=== PATIENT | male | born 1970 | race Caucasian/White ===

== ENCOUNTER 2016-06-12 19:07 | Emergency (ER) | payer BC, OTHER ==
[~2016-06-12] VITALS: Ht 172.7 cm; Wt 90.7 kg
[~2016-06-12 19:07] MED LIST: CHLO25CA PO; OMEP20CA3 PO; ZOFR20TA PO
[2016-06-12 19:08] VITALS: BP 148/105
[2016-06-12] MEDS ORDERED: LISI-538 PO (19:29)
[2016-06-12] MEDS ORDERED: HYDR25T PO (19:29)
[2016-06-12] MEDS ORDERED: BUSP10TA PO (19:29)
[2016-06-12] MEDS ORDERED: NS 1,000 ML IV ONE (19:45)
[2016-06-12] MEDS ORDERED: LORazepam 2 MG/ML VIAL (J2060) IV STA (19:45)
[2016-06-12] MEDS ORDERED: ONDANSETRON 4MG/2ML VIAL (J2405) IV ONE ×2 (19:45→23:15)
[2016-06-12] MEDS ORDERED: PANTOPRAZOLE 40MG INJ (PROTONIX) (C9113) IV ONE (19:45)
[2016-06-12 22:31] LABS: ALBUMIN 4.1 GM/DL (3.2-5.2); ALBUMIN/GLOBULIN RATIO 1.21 (1.00-1.93); ALKALINE PHOSPHATASE 91 U/L (45-117); ALT/SGPT 65 U/L (12-78); ANION GAP 15 MEQ/L (8-16); AST/SGOT 62 U/L (15-37); BILIRUBIN,DIRECT 0.1 MG/DL (0.0-0.2); BILIRUBIN,TOTAL 0.5 MG/DL (0.2-1.0); BLOOD UREA NITROGEN 18 MG/DL (7-18); CALCIUM LEVEL 8.7 MG/DL (8.5-10.1); CARBON DIOXIDE LEVEL 25 MEQ/L (21-32); CHLORIDE LEVEL 100 MEQ/L (98-107); CREATININE FOR GFR 1.11 MG/DL (0.70-1.30); GLOMERULAR FILTRATION RATE > 60.0 (>60); GLUCOSE, FASTING 112 MG/DL (70-105); POTASSIUM SERUM 4.5 MEQ/L (3.5-5.1); SODIUM LEVEL 140 MEQ/L (136-145); TOTAL PROTEIN 7.5 GM/DL (6.4-8.2)
[2016-06-12] MEDS ORDERED: ZOFR4TAB3 PO (22:40)
== END 2016-06-12 23:37 | disposition home or self-care (01) ==
LOC: M ED 19:59
DX: F10.239 Alcohol dependence with withdrawal, unspecified (principal); R11.2 Nausea with vomiting, unspecified; F17.200 Nicotine dependence, unspecified, uncomplicated
CPT/HCPCS: 36415; 80048; 80076; 83690; 96374; 96375; 96376; 99282; C9113; J2060; J2405

== ENCOUNTER → 2016-09-19 | Outpatient (CLI) | payer BC ==
[~2016-09-19] MED LIST changes: +BUSP10TA PO; +HYDR25T PO; +LISI-538 PO; +ZOFR4TAB3 PO
[2016-09-19 13:15] LABS: BASO # 0.1 K/mm3 (0.0-0.2); BASO % 1.2 % (0.0-1.0); EOS # 0.2 K/mm3 (0.0-0.50); EOS % 3.8 % (0.0-3.0); LYMPH # 2.2 K/mm3 (1.5-4.5); LYMPH % 35.7 % (24.0-44.0); MEAN CORPUSCULAR HEMOGLOBIN 31.8 pg (27.0-33.0); MEAN CORPUSCULAR HGB CONC 35.8 g/dl (32.0-36.5); MEAN CORPUSCULAR VOLUME 89.1 fl (80.0-96.0); MONO # 0.5 K/mm3 (0.0-0.8); MONO % 8.5 % (0.0-5.0); NEUTROPHILS # 2.7 K/mm3 (1.8-7.7); RED CELL DISTRIBUTION WIDTH 12.8 % (11.5-14.5); WHITE BLOOD COUNT 5.6 K/mm3 (4.0-10.0)
[2016-09-19 13:40] LABS: ALBUMIN 4.1 GM/DL (3.2-5.2); ALBUMIN/GLOBULIN RATIO 1.24 (1.00-1.93); ALKALINE PHOSPHATASE 70 U/L (45-117); ALT/SGPT 30 U/L (12-78); ANION GAP 8 MEQ/L (8-16); AST/SGOT 17 U/L (15-37); BILIRUBIN,TOTAL 0.7 MG/DL (0.2-1.0); BLOOD UREA NITROGEN 16 MG/DL (7-18); CALCIUM LEVEL 9.6 MG/DL (8.5-10.1); CARBON DIOXIDE LEVEL 26 MEQ/L (21-32); CHLORIDE LEVEL 104 MEQ/L (98-107); CHOLESTEROL LEVEL 204 MG/DL (<200); CREATININE FOR GFR 1.04 MG/DL (0.70-1.30); FREE T4 1.18 NG/DL (0.76-1.46); GLOMERULAR FILTRATION RATE > 60.0 (>60); GLUCOSE, FASTING 89 MG/DL (70-105); POTASSIUM SERUM 4.6 MEQ/L (3.5-5.1); SODIUM LEVEL 138 MEQ/L (136-145); TOTAL PROTEIN 7.4 GM/DL (6.4-8.2); TRIGLYCERIDES LEVEL 114 MG/DL (<150)
== END ==
LOC: M LAB 12:15
PROVIDERS: ATTEND Nurse Practitioner Adult Health
DX: E78.00 Pure hypercholesterolemia, unspecified (principal); Z79.899 Other long term (current) drug therapy; E55.9 Vitamin D deficiency, unspecified
CPT/HCPCS: 36415; 80053; 80061; 82306; 83036; 84439; 84443; 85027; G0480

== ENCOUNTER 2017-06-06 19:04 | Emergency (ER) | payer BC ==
[2017-06-06] MEDS: ONDANSETRON 4 MG ORAL DISINTEGRATING TAB (S0181) PO (20:21)
[2017-06-06] MEDS: OXAZEPAM 15 MG CAP PO (20:21)
[2017-06-06] MEDS: cloNIDine 0.1 MG TAB PO (20:21)
== END 2017-06-06 20:38 | disposition home or self-care (01) ==
LOC: M ED 19:04
DX: F10.129 Alcohol abuse with intoxication, unspecified (principal); I10 Essential (primary) hypertension; Z79.899 Other long term (current) drug therapy; Z88.0 Allergy status to penicillin; F17.210 Nicotine dependence, cigarettes, uncomplicated
CPT/HCPCS: 99283

== ENCOUNTER → 2017-08-08 | Outpatient (CLI) | payer BC ==
[2017-08-08 14:58] LABS: BASO # 0.1 10^3/uL (0.0-0.2); BASO % 0.9 % (0.0-1.0); EOS # 0.3 10^3/uL (0.0-0.50); EOS % 3.8 % (0.0-3.0); HEMATOCRIT 44.2 % (42.0-52.0); HEMOGLOBIN 15.2 g/dl (13.5-17.5); IMMATURE GRANULOCYTE % 0.2 % (0-3.0); LYMPH # 2.5 10^3/uL (1.5-4.5); LYMPH % 37.6 % (24.0-44.0); MEAN CORPUSCULAR HEMOGLOBIN 30.5 pg (27.0-33.0); MEAN CORPUSCULAR HGB CONC 34.4 g/dl (32.0-36.5); MEAN CORPUSCULAR VOLUME 88.8 fl (80.0-96.0); MONO # 0.7 10^3/uL (0.0-0.8); MONO % 10.6 % (0.0-5.0); NEUTROPHILS # 3.1 10^3/uL (1.8-7.7); NEUTROPHILS % 46.9 % (36.0-66.0); PLATELET COUNT, AUTOMATED 326 10^3/uL (150-450); RED BLOOD COUNT 4.98 10^6/uL (4.30-6.10); RED CELL DISTRIBUTION WIDTH 12.5 % (11.5-14.5); WHITE BLOOD COUNT 6.5 10^3/uL (4.0-10.0)
[2017-08-08 15:15] LABS: ESTIMATED AVERAGE GLUCOSE 114 MG/DL (60-110); HEMOGLOBIN A1c 5.6 %
[2017-08-08 15:55] LABS: ALBUMIN/GLOBULIN RATIO 1.29 (1.00-1.93); ALKALINE PHOSPHATASE 63 U/L (45-117); ALT/SGPT 31 U/L (12-78); ANION GAP 4 MEQ/L (8-16); AST/SGOT 20 U/L (7-37); BILIRUBIN,TOTAL 0.5 MG/DL (0.2-1.0); BLOOD UREA NITROGEN 18 MG/DL (7-18); CARBON DIOXIDE LEVEL 30 MEQ/L (21-32); CHLORIDE LEVEL 107 MEQ/L (98-107); CHOLESTEROL LEVEL 187 MG/DL (<200); CHOLESTEROL RISK RATIO 4.675 (<5); CREATININE FOR GFR 1.04 MG/DL (0.70-1.30); FREE T4 0.98 NG/DL (0.76-1.46); GLOMERULAR FILTRATION RATE > 60.0 (>60); GLUCOSE, FASTING 86 MG/DL (70-100); HDL CHOLESTEROL 40 MG/DL (>40); LDL CHOLESTEROL 101.2 MG/DL (<100); NON-HDL-C 147 MG/DL; POTASSIUM SERUM 4.5 MEQ/L (3.5-5.1); SODIUM LEVEL 141 MEQ/L (136-145); TOTAL PROTEIN 7.1 GM/DL (6.4-8.2); TRIGLYCERIDES LEVEL 229 MG/DL (<150)
== END ==
LOC: M LAB 14:12
DX: F10.20 Alcohol dependence, uncomplicated (principal)
CPT/HCPCS: 84443

== ENCOUNTER → 2017-08-18 | Outpatient (CLI) | payer BC | LOC: M RAD 14:03 | DX: M25.561 Pain in right knee (principal) ==

== ENCOUNTER → 2017-09-08 | Outpatient (CLI) | payer BC ==
[2017-09-08 19:51] LABS: BASO # 0.1 10^3/uL (0.0-0.2); BASO % 0.7 % (0.0-1.0); EOS # 0.2 10^3/uL (0.0-0.50); EOS % 2.2 % (0.0-3.0); HEMATOCRIT 43.9 % (42.0-52.0); HEMOGLOBIN 15.1 g/dl (13.5-17.5); IMMATURE GRANULOCYTE % 0.3 % (0-3.0); LYMPH % 21.5 % (24.0-44.0); MEAN CORPUSCULAR HEMOGLOBIN 30.7 pg (27.0-33.0); MEAN CORPUSCULAR HGB CONC 34.4 g/dl (32.0-36.5); MEAN CORPUSCULAR VOLUME 89.2 fl (80.0-96.0); MONO # 1.1 10^3/uL (0.0-0.8); MONO % 12.2 % (0.0-5.0); NEUTROPHILS # 5.8 10^3/uL (1.8-7.7); NEUTROPHILS % 63.1 % (36.0-66.0); PLATELET COUNT, AUTOMATED 310 10^3/uL (150-450); RED BLOOD COUNT 4.92 10^6/uL (4.30-6.10); RED CELL DISTRIBUTION WIDTH 12.5 % (11.5-14.5); WHITE BLOOD COUNT 9.1 10^3/uL (4.0-10.0)
[2017-09-08 20:07] LABS: ALBUMIN 3.8 GM/DL (3.2-5.2); ALBUMIN/GLOBULIN RATIO 1.27 (1.00-1.93); ALKALINE PHOSPHATASE 67 U/L (45-117); ALT/SGPT 28 U/L (12-78); ANION GAP 7 MEQ/L (8-16); AST/SGOT 20 U/L (7-37); BILIRUBIN,TOTAL 0.8 MG/DL (0.2-1.0); BLOOD UREA NITROGEN 18 MG/DL (7-18); CALCIUM LEVEL 9.1 MG/DL (8.5-10.1); CARBON DIOXIDE LEVEL 27 MEQ/L (21-32); CHLORIDE LEVEL 105 MEQ/L (98-107); CREATININE FOR GFR 1.67 MG/DL (0.70-1.30); GLOMERULAR FILTRATION RATE 47.6 (>60); GLUCOSE, FASTING 78 MG/DL (70-100); SODIUM LEVEL 139 MEQ/L (136-145); TOTAL PROTEIN 6.8 GM/DL (6.4-8.2)
[2017-09-08 20:13] LABS: POTASSIUM SERUM 5.5 MEQ/L (3.5-5.1)
[2017-09-08 21:59] LABS: APPEARANCE, URINE CLEAR (CLEAR); BACTERIA, URINE AUTO NEGATIVE (NEGATIVE); BILIRUBIN, URINE AUTO NEGATIVE (NEGATIVE); BLOOD, URINE BLOOD 1+ (NEGATIVE); COLOR, URINE STRAW (YELLOW); GLUCOSE, URINE (UA) AUTO NEGATIVE (NEGATIVE); KETONE, URINE AUTO NEGATIVE (NEGATIVE); LEUKOCYTE ESTERASE, URINE AUTO NEGATIVE (NEGATIVE); MUCUS, URINE SMALL (NEGATIVE); NITRITE, URINE AUTO NEGATIVE (NEGATIVE); PROTEIN, URINE AUTO NEGATIVE (NEGATIVE); RBC, URINE AUTO 3 /HPF (0-3); SPECIFIC GRAVITY URINE AUTO 1.009 (1.002-1.035); SQUAMOUS EPITHELIAL CELL UR AU 0 /HPF (0-6); UROBILINOGEN, URINE AUTO 0.2 mg/dL (0.0-2.0); WBC, URINE AUTO 1 /HPF (0-3)
== END ==
LOC: M WUC 16:27
DX: N20.9 Urinary calculus, unspecified (principal); K59.00 Constipation, unspecified
CPT/HCPCS: 80053

== ENCOUNTER → 2017-09-09 | Outpatient (CLI) | payer BC ==
[~2017-09-09] MED LIST changes: -BUSP10TA PO; -CHLO25CA PO; +GASTROGRAFIN SOLUTION 30ML (Q9963) As Ordered; -HYDR25T PO; +ISOVUE-370 76% 100ML VIAL (Q9967) As Ordered; -LISI-538 PO; -OMEP20CA3 PO; -ZOFR20TA PO; -ZOFR4TAB3 PO
== END ==
LOC: M RAD 11:01
DX: K59.00 Constipation, unspecified (principal); N20.0 Calculus of kidney
CPT/HCPCS: Q9963

== ENCOUNTER → 2017-09-22 | Outpatient (REF) | payer BC ==
[2017-09-22 13:34] LABS: APPEARANCE, URINE CLEAR (CLEAR); BACTERIA, URINE AUTO NEGATIVE (NEGATIVE); BILIRUBIN, URINE AUTO NEGATIVE (NEGATIVE); BLOOD, URINE BLOOD NEGATIVE (NEGATIVE); COLOR, URINE YELLOW (YELLOW); GLUCOSE, URINE (UA) AUTO NEGATIVE (NEGATIVE); KETONE, URINE AUTO NEGATIVE (NEGATIVE); LEUKOCYTE ESTERASE, URINE AUTO NEGATIVE (NEGATIVE); NITRITE, URINE AUTO NEGATIVE (NEGATIVE); PROTEIN, URINE AUTO NEGATIVE (NEGATIVE); RBC, URINE AUTO 1 /HPF (0-3); SQUAMOUS EPITHELIAL CELL UR AU 0 /HPF (0-6); UROBILINOGEN, URINE AUTO 0.2 mg/dL (0.0-2.0); WBC, URINE AUTO 0 /HPF (0-3)
== END ==
LOC: M SMT 12:12
DX: N20.0 Calculus of kidney (principal)
CPT/HCPCS: 81001

== ENCOUNTER → 2017-09-23 | Outpatient (CLI) | payer BC | LOC: M SMT 14:05 | DX: N20.0 Calculus of kidney (principal) | CPT/HCPCS: 74018 ==

== ENCOUNTER → 2017-10-10 | Outpatient (CLI) | payer BC ==
[2017-10-10 14:44] LABS: HEMATOCRIT 45.9 % (42.0-52.0); MEAN CORPUSCULAR HEMOGLOBIN 30.7 pg (27.0-33.0); MEAN CORPUSCULAR HGB CONC 34.9 g/dl (32.0-36.5); MEAN CORPUSCULAR VOLUME 87.9 fl (80.0-96.0); PLATELET COUNT, AUTOMATED 322 10^3/uL (150-450); RED BLOOD COUNT 5.22 10^6/uL (4.30-6.10); WHITE BLOOD COUNT 6.1 10^3/uL (4.0-10.0)
[2017-10-10 14:47] LABS: APPEARANCE, URINE CLEAR (CLEAR); BACTERIA, URINE AUTO NEGATIVE (NEGATIVE); BILIRUBIN, URINE AUTO NEGATIVE (NEGATIVE); BLOOD, URINE BLOOD NEGATIVE (NEGATIVE); COLOR, URINE YELLOW (YELLOW); GLUCOSE, URINE (UA) AUTO NEGATIVE (NEGATIVE); KETONE, URINE AUTO NEGATIVE (NEGATIVE); LEUKOCYTE ESTERASE, URINE AUTO NEGATIVE (NEGATIVE); NITRITE, URINE AUTO NEGATIVE (NEGATIVE); PROTEIN, URINE AUTO NEGATIVE (NEGATIVE); RBC, URINE AUTO 1 /HPF (0-3); SPECIFIC GRAVITY URINE AUTO 1.012 (1.002-1.035); SQUAMOUS EPITHELIAL CELL UR AU 0 /HPF (0-6); UROBILINOGEN, URINE AUTO 0.2 mg/dL (0.0-2.0); WBC, URINE AUTO 0 /HPF (0-3)
[2017-10-10 14:54] LABS: INR 0.91; PROTHROMBIN TIME 12.4 SECONDS (12.1-14.4)
[2017-10-10 15:12] LABS: ANION GAP 6 MEQ/L (8-16); BLOOD UREA NITROGEN 16 MG/DL (7-18); CALCIUM LEVEL 9.2 MG/DL (8.5-10.1); CARBON DIOXIDE LEVEL 30 MEQ/L (21-32); CHLORIDE LEVEL 103 MEQ/L (98-107); CREATININE FOR GFR 1.15 MG/DL (0.70-1.30); GLOMERULAR FILTRATION RATE > 60.0 (>60); GLUCOSE, FASTING 97 MG/DL (70-100); POTASSIUM SERUM 4.8 MEQ/L (3.5-5.1); SODIUM LEVEL 139 MEQ/L (136-145)
== END ==
LOC: M LAB 14:04
DX: N20.0 Calculus of kidney (principal)
CPT/HCPCS: 80048

== ENCOUNTER 2017-10-16 06:30 | Day surgery (SDC) | payer BC ==
[2017-10-16] MEDS ORDERED: CIPROFLOXACIN/D5W 400 MG/200 ML BAG (J0744) As Ordered (08:05)
[2017-10-16] MEDS ORDERED: fentaNYL 100 MCG/2 ML INJECTION (J3010) As Ordered (08:12)
[2017-10-16] MEDS ORDERED: PROPOFOL 200 MG/20 ML VIAL As Ordered (08:12)
[2017-10-16] MEDS ORDERED: MIDAZOLAM INJ 2 MG/2 ML VIAL (J2250) As Ordered (08:12)
[2017-10-16] MEDS ORDERED: LIDOCAINE 2% INJ 100 MG/5 ML SDV (FOR ANES.) As Ordered (08:12)
[2017-10-16] MEDS ORDERED: LR 1,000 ML IV ×2 (08:30→09:45)
[2017-10-16] MEDS: CIPROFLOXACIN 400 MG in APPROPRIATE DILUENT 1 EA IV (08:30)
[2017-10-16] MEDS ORDERED: NORCO, ANEXSIA 5/325MG TABLET (HYDROcodone/ACETAMINOPHEN) PO (09:45)
[2017-10-16] MEDS ORDERED: PERCOCET 5MG/325MG TAB PO (09:45)
[2017-10-16] MEDS: ONDANSETRON 4MG/2ML VIAL (J2405) IV (09:55)
[2017-10-16] MEDS: PERCOCET 5MG/325MG TAB PO (09:55)
== END 2017-10-16 11:05 | disposition home or self-care (01) ==
LOC: M SDC 06:30
DX: N20.0 Calculus of kidney (principal); K21.9 Gastro-esophageal reflux disease without esophagitis; F41.9 Anxiety disorder, unspecified; I10 Essential (primary) hypertension; Z88.1 Allergy status to other antibiotic agents; Z79.899 Other long term (current) drug therapy; Z87.891 Personal history of nicotine dependence
CPT/HCPCS: 50590

== ENCOUNTER → 2017-11-06 | Outpatient (CLI) | payer BC | LOC: M SMT 09:12 | DX: N20.0 Calculus of kidney (principal) | CPT/HCPCS: 74018 ==

== ENCOUNTER 2017-11-10 19:40 | Emergency (ER) | payer OTHER, BC ==
[2017-11-10] MEDS: NORCO 5/325MG TABLET (BULK FOR ED) PO (21:40)
== END 2017-11-10 21:45 | disposition home or self-care (01) ==
LOC: M ED 19:40
DX: S86.312A Strain of muscle(s) and tendon(s) of peroneal muscle group at lower leg level, left leg, initial encounter (principal); X50.9XXA Other and unspecified overexertion or strenuous movements or postures, initial encounter; Y92.89 Other specified places as the place of occurrence of the external cause; I10 Essential (primary) hypertension; R07.9 Chest pain, unspecified; K21.9 Gastro-esophageal reflux disease without esophagitis; M54.9 Dorsalgia, unspecified; Z87.39 Personal history of other diseases of the musculoskeletal system and connective tissue; Z88.0 Allergy status to penicillin; Z79.899 Other long term (current) drug therapy
CPT/HCPCS: 73564

== ENCOUNTER 2017-11-19 09:24 | Emergency (ER) | payer OTHER, BC | END 2017-11-19 11:40 | disposition home or self-care (01) | LOC: M ED 09:24 | DX: S29.011A Strain of muscle and tendon of front wall of thorax, initial encounter (principal); S23.41XA Sprain of ribs, initial encounter; X58.XXXA Exposure to other specified factors, initial encounter; Y92.89 Other specified places as the place of occurrence of the external cause; I10 Essential (primary) hypertension; M54.9 Dorsalgia, unspecified; F41.9 Anxiety disorder, unspecified; F17.210 Nicotine dependence, cigarettes, uncomplicated; Z79.899 Other long term (current) drug therapy | CPT/HCPCS: 71101 ==

== ENCOUNTER 2017-12-01 20:23 | Emergency (ER) | payer BC, OTHER ==
[2017-12-01 23:47] LABS: HEMATOCRIT 43.2 % (42.0-52.0); HEMOGLOBIN 15.3 g/dl (13.5-17.5); MEAN CORPUSCULAR HEMOGLOBIN 30.5 pg (27.0-33.0); MEAN CORPUSCULAR HGB CONC 35.4 g/dl (32.0-36.5); MEAN CORPUSCULAR VOLUME 86.2 fl (80.0-96.0); PLATELET COUNT, AUTOMATED 460 10^3/uL (150-450); RED BLOOD COUNT 5.01 10^6/uL (4.30-6.10); RED CELL DISTRIBUTION WIDTH 14.3 % (11.5-14.5); WHITE BLOOD COUNT 6.8 10^3/uL (4.0-10.0)
[2017-12-02 00:11] LABS: AMPHETAMINES LEVEL URINE NEGATIVE (NEGATIVE); BARBITURATES URINE NEGATIVE (NEGATIVE); BENZODIAZEPINES URINE NEGATIVE (NEGATIVE); CANNABINOIDS URINE NEGATIVE (NEGATIVE); COCAINE METABOLITE URINE NEGATIVE (NEGATIVE); METHADONE URINE NEGATIVE (NEGATIVE); OPIATES URINE NEGATIVE (NEGATIVE); PHENCYCLIDINE URINE NEGATIVE (NEGATIVE)
[2017-12-02 00:22] LABS: ALBUMIN 3.9 GM/DL (3.2-5.2); ALBUMIN/GLOBULIN RATIO 1.22 (1.00-1.93); ALKALINE PHOSPHATASE 93 U/L (45-117); ALT/SGPT 66 U/L (12-78); ANION GAP 10 MEQ/L (8-16); AST/SGOT 46 U/L (7-37); BILIRUBIN,DIRECT 0.2 MG/DL (0.0-0.2); BILIRUBIN,TOTAL 0.5 MG/DL (0.2-1.0); BLOOD UREA NITROGEN 15 MG/DL (7-18); CALCIUM LEVEL 8.8 MG/DL (8.5-10.1); CARBON DIOXIDE LEVEL 25 MEQ/L (21-32); CHLORIDE LEVEL 105 MEQ/L (98-107); CREATININE FOR GFR 1.11 MG/DL (0.70-1.30); GLOMERULAR FILTRATION RATE > 60.0 (>60); GLUCOSE, FASTING 84 MG/DL (70-100); POTASSIUM SERUM 3.9 MEQ/L (3.5-5.1); SALICYLATE LEVEL < 1.7 MG/DL (5.0-30.0); SODIUM LEVEL 140 MEQ/L (136-145); TOTAL PROTEIN 7.1 GM/DL (6.4-8.2)
[2017-12-02 00:27] LABS: ACETAMINOPHEN LEVEL < 2.0 UG/ML (10.0-30.0)
[2017-12-02] MEDS: ONDANSETRON 4 MG ORAL DISINTEGRATING TAB (Q0162 PER 1MG) PO (07:38)
[2017-12-02] MEDS: OXAZEPAM 15 MG CAP PO (08:33)
== END 2017-12-02 09:41 | disposition home or self-care (01) ==
LOC: M ED 20:23
DX: F10.220 Alcohol dependence with intoxication, uncomplicated (principal); I10 Essential (primary) hypertension; K21.9 Gastro-esophageal reflux disease without esophagitis; Z79.899 Other long term (current) drug therapy; Z87.442 Personal history of urinary calculi; Z88.0 Allergy status to penicillin
CPT/HCPCS: Q0162

== ENCOUNTER → 2018-01-06 | Outpatient (CLI) | payer BC | LOC: M OUTALCOH 08:24 | DX: F10.20 Alcohol dependence, uncomplicated (principal) ==

== ENCOUNTER 2018-01-14 13:39 | Outpatient (RCR) | payer BC | END 2018-01-28 | LOC: M OUTALCOH 01-21 10:30 | DX: F10.20 Alcohol dependence, uncomplicated (principal); Z72.0 Tobacco use ==

== ENCOUNTER 2018-01-21 06:39 | Inpatient (IN) | payer BC ==
[2018-01-21 07:35] LABS: BASO # 0.1 10^3/uL (0.0-0.2); BASO % 0.9 % (0.0-1.0); EOS # 0.1 10^3/uL (0.0-0.50); EOS % 0.6 % (0.0-3.0); HEMATOCRIT 46.4 % (42.0-52.0); HEMOGLOBIN 16.5 g/dl (13.5-17.5); IMMATURE GRANULOCYTE % 0.4 % (0-3.0); LYMPH # 2.3 10^3/uL (1.5-4.5); LYMPH % 18.3 % (24.0-44.0); MEAN CORPUSCULAR HEMOGLOBIN 30.7 pg (27.0-33.0); MEAN CORPUSCULAR HGB CONC 35.6 g/dl (32.0-36.5); MEAN CORPUSCULAR VOLUME 86.2 fl (80.0-96.0); MONO % 8.1 % (0.0-5.0); NEUTROPHILS # 9.2 10^3/uL (1.8-7.7); NEUTROPHILS % 71.7 % (36.0-66.0); PLATELET COUNT, AUTOMATED 366 10^3/uL (150-450); RED BLOOD COUNT 5.38 10^6/uL (4.30-6.10); WHITE BLOOD COUNT 12.8 10^3/uL (4.0-10.0)
[2018-01-21] MEDS: LORazepam 2 MG/ML VIAL (J2060) IV (07:35)
[2018-01-21] MEDS ORDERED: ISOVUE-370 76% 100ML VIAL (Q9967) As Ordered (07:35)
[2018-01-21] MEDS: NS 1,000 ML IV ×4 (07:35→17:37)
[2018-01-21] MEDS: ONDANSETRON 4MG/2ML VIAL (J2405) IV ×2 (07:35→16:00)
[2018-01-21] MEDS: PANTOPRAZOLE 40MG INJ (PROTONIX) (C9113) IV (07:35)
[2018-01-21 07:43] LABS: APPEARANCE, URINE CLEAR (CLEAR); BACTERIA, URINE AUTO NEGATIVE (NEGATIVE); BILIRUBIN, URINE AUTO NEGATIVE (NEGATIVE); BLOOD, URINE BLOOD 2+ (NEGATIVE); COLOR, URINE YELLOW (YELLOW); GLUCOSE, URINE (UA) AUTO NEGATIVE (NEGATIVE); KETONE, URINE AUTO NEGATIVE (NEGATIVE); LEUKOCYTE ESTERASE, URINE AUTO NEGATIVE (NEGATIVE); MUCUS, URINE SMALL (NEGATIVE); NITRITE, URINE AUTO NEGATIVE (NEGATIVE); PROTEIN, URINE AUTO 1+ mg/dL (NEGATIVE); RBC, URINE AUTO 22 /HPF (0-3); SPECIFIC GRAVITY URINE AUTO 1.027 (1.002-1.035); SQUAMOUS EPITHELIAL CELL UR AU 0 /HPF (0-6); UROBILINOGEN, URINE AUTO 0.2 mg/dL (0.0-2.0); WBC, URINE AUTO 2 /HPF (0-3)
[2018-01-21 08:04] LABS: AMMONIA 37 uMOL/L (<32)
[2018-01-21 08:43] LABS: INR 1.07; PROTHROMBIN TIME 14.1 SECONDS (12.1-14.4)
[2018-01-21 08:44] LABS: PARTIAL THROMBOPLASTIN TIME 30.4 SECONDS (25.4-37.6)
[2018-01-21 08:59] LABS: ALBUMIN 4.1 GM/DL (3.2-5.2); ALBUMIN/GLOBULIN RATIO 1.46 (1.00-1.93); ALKALINE PHOSPHATASE 76 U/L (45-117); ALT/SGPT 88 U/L (12-78); AMYLASE 112 U/L (25-115); ANION GAP 13 MEQ/L (8-16); AST/SGOT 75 U/L (7-37); BILIRUBIN,TOTAL 1.1 MG/DL (0.2-1.0); BLOOD UREA NITROGEN 26 MG/DL (7-18); CALCIUM LEVEL 8.6 MG/DL (8.5-10.1); CARBON DIOXIDE LEVEL 23 MEQ/L (21-32); CHLORIDE LEVEL 102 MEQ/L (98-107); CK-MB VALUE MASS < 1.0 NG/ML (<3.6); CPK CREATINE PHOSPHOKINASE 197 U/L (39-308); CREATININE FOR GFR 1.35 MG/DL (0.70-1.30); ETHYL ALCOHOL (ETHANOL) < 0.003 % (0.000-0.010); GLOMERULAR FILTRATION RATE > 60.0 (>60); GLUCOSE, FASTING 98 MG/DL (70-100); LIPASE 907 U/L (73-393); MB/CK RELATIVE INDEX 0.51 (< OR =4); POTASSIUM SERUM 4.3 MEQ/L (3.5-5.1); SODIUM LEVEL 138 MEQ/L (136-145); TOTAL PROTEIN 6.9 GM/DL (6.4-8.2); TROPONIN I < 0.02 NG/ML (< 0.10)
[2018-01-21 09:29] LABS: HEPATITIS B SURFACE ANTIGEN NEGATIVE (NEGATIVE)
[2018-01-21] MEDS ORDERED: LORazepam 2 MG/ML VIAL (J2060) IV (09:45)
[2018-01-21] MEDS: LORazepam 2 MG TAB PO (09:51)
[2018-01-21 09:56] LABS: HEPATITIS B CORE ANTIBODY IGM NEGATIVE (NEGATIVE); HEPATITIS C VIRUS ABY INDEX < 0.0 INDEX (<0.8)
[2018-01-21 09:59] LABS: HEPATITIS A ANTIBODY IGM NEGATIVE (NEGATIVE)
[2018-01-21] MEDS: METOCLOPRAMIDE INJ 10MG/2ML VIAL (J2765) IV (10:37)
[2018-01-21] MEDS: GI COCKTAIL 50ML BTL(HYOSCYAMINE/MAALOX/LIDOCAINE VISCOUS)(1:3:1) PO (10:37)
[2018-01-21 11:05] LABS: GOLD SPEC TUBE RECIEVED
[2018-01-21] MEDS ORDERED: ACETAMINOPHEN TAB 650MG DOSE (2X325MG) PO (12:00)
[2018-01-21] MEDS ORDERED: MORPHINE 4 MG/ML 1ML VIAL/SYRINGE (J2270) IV (12:00)
[2018-01-21] MEDS: OXAZEPAM 10 MG CAP PO ×2 (13:16→21:35)
[2018-01-21] MEDS: HEPARIN SOD (PORCINE) 5000 UNITS/ML VIAL SQ ×2 (13:16→21:34)
[2018-01-21] MEDS: cloNIDine 0.1 MG TAB PO (14:15)
[2018-01-21] MEDS: FOLIC ACID 1 MG TAB PO (15:32)
[2018-01-21] MEDS: THIAMINE 100 MG TAB PO (15:32)
[2018-01-21] MEDS: MULTIVITAMINS/MINERALS THERAP 1 TAB PO (15:33)
[2018-01-21] MEDS: busPIRone 5 MG TAB PO ×2 (16:52→21:35)
[2018-01-21 20:49] LABS: LACTIC ACID SEPSIS PROTOCOL 2.4 MMOL/L (0.4-2.0)
[2018-01-21] MEDS: hydrOXYzine 25 MG TAB PO (21:34)
[2018-01-22] MEDS: NS 1,000 ML IV ×5 (00:09→23:30)
[2018-01-22] MEDS: OXAZEPAM 10 MG CAP PO ×3 (06:06→20:30)
[2018-01-22] MEDS: HEPARIN SOD (PORCINE) 5000 UNITS/ML VIAL SQ ×3 (06:06→20:31)
[2018-01-22 07:20] LABS: HEMATOCRIT 36.8 % (42.0-52.0); MEAN CORPUSCULAR HEMOGLOBIN 31.3 pg (27.0-33.0); MEAN CORPUSCULAR HGB CONC 35.3 g/dl (32.0-36.5); MEAN CORPUSCULAR VOLUME 88.5 fl (80.0-96.0); RED BLOOD COUNT 4.16 10^6/uL (4.30-6.10); RED CELL DISTRIBUTION WIDTH 12.1 % (11.5-14.5); WHITE BLOOD COUNT 5.8 10^3/uL (4.0-10.0)
[2018-01-22 07:25] LABS: PLATELET COUNT, AUTOMATED 235 10^3/uL (150-450)
[2018-01-22 08:03] LABS: ALBUMIN 2.9 GM/DL (3.2-5.2); ALBUMIN/GLOBULIN RATIO 1.21 (1.00-1.93); ALKALINE PHOSPHATASE 72 U/L (45-117); ALT/SGPT 52 U/L (12-78); ANION GAP 8 MEQ/L (8-16); AST/SGOT 39 U/L (7-37); BILIRUBIN,TOTAL 1.1 MG/DL (0.2-1.0); BLOOD UREA NITROGEN 9 MG/DL (7-18); CALCIUM LEVEL 7.3 MG/DL (8.5-10.1); CARBON DIOXIDE LEVEL 24 MEQ/L (21-32); CHLORIDE LEVEL 109 MEQ/L (98-107); CHOLESTEROL LEVEL 82 MG/DL (<200); CHOLESTEROL RISK RATIO 2.411 (<5); CREATININE FOR GFR 0.99 MG/DL (0.70-1.30); GLOMERULAR FILTRATION RATE > 60.0 (>60); GLUCOSE, FASTING 103 MG/DL (70-100); HDL CHOLESTEROL 34 MG/DL (>40); LDL CHOLESTEROL -3 MG/DL (<100); NON-HDL-C 48 MG/DL; POTASSIUM SERUM 3.6 MEQ/L (3.5-5.1); SODIUM LEVEL 141 MEQ/L (136-145); TOTAL PROTEIN 5.3 GM/DL (6.4-8.2); TRIGLYCERIDES LEVEL 254 MG/DL (<150)
[2018-01-22] MEDS: THIAMINE 100 MG TAB PO (10:56)
[2018-01-22] MEDS: PANTOPRAZOLE 40MG INJ (PROTONIX) (C9113) IV (10:56)
[2018-01-22] MEDS: busPIRone 5 MG TAB PO ×3 (10:56→20:30)
[2018-01-22] MEDS: FOLIC ACID 1 MG TAB PO (10:56)
[2018-01-22] MEDS: MULTIVITAMINS/MINERALS THERAP 1 TAB PO (10:56)
[2018-01-22] MEDS: hydrOXYzine 25 MG TAB PO (20:30)
[2018-01-23] MEDS: NS 1,000 ML IV (03:39)
[2018-01-23] MEDS: HEPARIN SOD (PORCINE) 5000 UNITS/ML VIAL SQ (05:00)
[2018-01-23] MEDS: OXAZEPAM 10 MG CAP PO (05:01)
[2018-01-23 06:27] LABS: HEMATOCRIT 37.5 % (42.0-52.0); HEMOGLOBIN 13.1 g/dl (13.5-17.5); MEAN CORPUSCULAR HGB CONC 34.9 g/dl (32.0-36.5); MEAN CORPUSCULAR VOLUME 88.7 fl (80.0-96.0); PLATELET COUNT, AUTOMATED 226 10^3/uL (150-450); RED BLOOD COUNT 4.23 10^6/uL (4.30-6.10); RED CELL DISTRIBUTION WIDTH 12.1 % (11.5-14.5); WHITE BLOOD COUNT 5.6 10^3/uL (4.0-10.0)
[2018-01-23 06:56] LABS: ALBUMIN 2.8 GM/DL (3.2-5.2); ALBUMIN/GLOBULIN RATIO 0.93 (1.00-1.93); ALKALINE PHOSPHATASE 69 U/L (45-117); ALT/SGPT 58 U/L (12-78); ANION GAP 9 MEQ/L (8-16); AST/SGOT 47 U/L (7-37); BILIRUBIN,TOTAL 0.8 MG/DL (0.2-1.0); BLOOD UREA NITROGEN 5 MG/DL (7-18); CALCIUM LEVEL 7.5 MG/DL (8.5-10.1); CARBON DIOXIDE LEVEL 25 MEQ/L (21-32); CHLORIDE LEVEL 109 MEQ/L (98-107); CREATININE FOR GFR 0.87 MG/DL (0.70-1.30); GLOMERULAR FILTRATION RATE > 60.0 (>60); GLUCOSE, FASTING 86 MG/DL (70-100); LIPASE 322 U/L (73-393); POTASSIUM SERUM 3.5 MEQ/L (3.5-5.1); SODIUM LEVEL 143 MEQ/L (136-145); TOTAL PROTEIN 5.8 GM/DL (6.4-8.2)
[2018-01-23] MEDS: THIAMINE 100 MG TAB PO (09:32)
[2018-01-23] MEDS: MULTIVITAMINS/MINERALS THERAP 1 TAB PO (09:32)
[2018-01-23] MEDS: FOLIC ACID 1 MG TAB PO (09:32)
[2018-01-23] MEDS: PANTOPRAZOLE 40MG INJ (PROTONIX) (C9113) IV (09:32)
[2018-01-23] MEDS: busPIRone 5 MG TAB PO (09:33)
== END 2018-01-23 13:04 | disposition home or self-care (01) | DRG 282 ==
LOC: M ED 06:39 → M ED INP 11:54 → M MSPAV 15:25
DX: K85.20 Alcohol induced acute pancreatitis without necrosis or infection (principal); E87.2 Acidosis; I10 Essential (primary) hypertension; K21.9 Gastro-esophageal reflux disease without esophagitis; E86.0 Dehydration; F41.9 Anxiety disorder, unspecified; F17.210 Nicotine dependence, cigarettes, uncomplicated; F32.9 Major depressive disorder, single episode, unspecified; F10.10 Alcohol abuse, uncomplicated; Z79.899 Other long term (current) drug therapy; Z88.0 Allergy status to penicillin

== ENCOUNTER 2018-02-04 16:00 | Outpatient (RCR) | payer BC | END 2018-02-27 | LOC: M OUTALCOH 02-09 14:00 | DX: F10.20 Alcohol dependence, uncomplicated (principal); Z72.0 Tobacco use ==

== ENCOUNTER 2018-03-23 13:00 | Outpatient (RCR) | payer BC ==
[~2018-03-23 13:00] MED LIST changes: +BUSP10TA PO; +CHLO25CA PO; +CLONI1TA PO; +FOLI1TAB11 PO; -GASTROGRAFIN SOLUTION 30ML (Q9963) As Ordered; +HYDR-3363 PO; -ISOVUE-370 76% 100ML VIAL (Q9967) As Ordered; +LISI-538 PO; +MULTCAP PO; +NORCOTAB PO; +OMEP20CA3 PO; +OXAZ30CA2 PO; +THIA100TA PO; +VIST25CA PO; +ZOFR4TAB14 PO; +ZOFR4TAB16 PO
== END 2018-03-30 ==
LOC: M OUTALCOH 13:00
PROVIDERS: ATTEND Psychiatry & Neurology Psychiatry
DX: F10.20 Alcohol dependence, uncomplicated (principal); Z72.0 Tobacco use

== ENCOUNTER 2018-04-24 14:00 | Outpatient (RCR) | payer BC | END 2018-04-30 | LOC: M OUTALCOH 14:00 | PROVIDERS: ATTEND Psychiatry & Neurology Psychiatry | DX: F10.20 Alcohol dependence, uncomplicated (principal); Z72.0 Tobacco use ==

== ENCOUNTER → 2018-05-11 | Outpatient (CLI) | payer BC ==
--- NOTE | 2018-05-11 16:58 | REP ---
KUB, ONE VIEW: HISTORY: Kidney stones. COMPARISON: 11/06/2017. A small amount of air is present in the intestine. There are no air fluid levels or dilated loops of intestine. There is no pneumoperitoneum. There is no nephrocalcinosis. Calcifications are present in the pelvis consistent with phleboliths. IMPRESSION: Nonspecific bowel gas pattern. Electronically Signed by Aaron Valenzuela MD 05/11/2018 05:03 P
== END ==
LOC: M SMT 13:44
PROVIDERS: ATTEND Nurse Practitioner Family
DX: R14.3 Flatulence (principal)

== ENCOUNTER 2018-05-25 09:24 | Outpatient (RCR) | payer BC | END 2018-05-28 | LOC: M OUTALCOH 09:24 | PROVIDERS: ATTEND Psychiatry & Neurology Psychiatry | DX: F10.20 Alcohol dependence, uncomplicated (principal); Z72.0 Tobacco use ==

== ENCOUNTER 2018-06-02 16:15 | Emergency (ER) | payer BC ==
[~2018-06-02] VITALS: Ht 172.7 cm; Wt 90.9 kg
[2018-06-02] MEDS ORDERED: LORazepam 1 MG TAB PO STA (17:37)
[2018-06-02] MEDS ORDERED: ONDANSETRON 4 MG ORAL DISINTEGRATING TAB (Q0162 PER 1MG) PO ONE (17:45)
[2018-06-02 17:54] LABS: HEMATOCRIT 48.3 % (42.0-52.0); HEMOGLOBIN 16.9 g/dl (13.5-17.5); MEAN CORPUSCULAR VOLUME 85.8 fl (80.0-96.0); PLATELET COUNT, AUTOMATED 380 10^3/uL (150-450); RED BLOOD COUNT 5.63 10^6/uL (4.30-6.10); WHITE BLOOD COUNT 6.6 10^3/uL (4.0-10.0)
[2018-06-02 18:04] LABS: ACETAMINOPHEN LEVEL < 2.0 UG/ML (10.0-30.0); ALBUMIN 3.7 GM/DL (3.2-5.2); ALT/SGPT 77 U/L (12-78); BILIRUBIN,DIRECT 0.2 MG/DL (0.0-0.2); BILIRUBIN,TOTAL 0.6 MG/DL (0.2-1.0); BLOOD UREA NITROGEN 19 MG/DL (7-18); CALCIUM LEVEL 8.1 MG/DL (8.5-10.1); CARBON DIOXIDE LEVEL 26 MEQ/L (21-32); CHLORIDE LEVEL 105 MEQ/L (98-107); CREATININE FOR GFR 1.07 MG/DL (0.70-1.30); ETHYL ALCOHOL (ETHANOL) 0.231 % (0.000-0.010); GLOMERULAR FILTRATION RATE > 60.0 (>60); GLUCOSE, FASTING 92 MG/DL (70-100); SALICYLATE LEVEL < 1.7 MG/DL (5.0-30.0); SODIUM LEVEL 141 MEQ/L (136-145); TOTAL PROTEIN 6.8 GM/DL (6.4-8.2)
[2018-06-02] MEDS ORDERED: OXAZ30CA2 PO (19:33)
[2018-06-02 19:55] VITALS: BP 154/106
== END 2018-06-02 20:00 | disposition home or self-care (01) ==
LOC: M ED 16:15
DX: F10.129 Alcohol abuse with intoxication, unspecified (principal); I10 Essential (primary) hypertension; K21.9 Gastro-esophageal reflux disease without esophagitis; F41.9 Anxiety disorder, unspecified; Z87.442 Personal history of urinary calculi; Z87.19 Personal history of other diseases of the digestive system; Z72.0 Tobacco use; Z79.899 Other long term (current) drug therapy; Z88.0 Allergy status to penicillin
CPT/HCPCS: 36415; 80048; 80076; 84443; 85027; 99284; G0480; Q0162

== ENCOUNTER 2019-01-01 03:08 | Emergency (ER) | payer BC ==
[~2019-01-01] VITALS: Ht 172.7 cm; Wt 84.1 kg
[~2019-01-01 03:08] MED LIST changes: +HYDR-3715 PO; -NORCOTAB PO; -OMEP20CA3 PO; +OMEP20CA4 PO
[2019-01-01 04:09] LABS: AMPHETAMINES LEVEL URINE NEGATIVE (NEGATIVE); BARBITURATES URINE NEGATIVE (NEGATIVE); BENZODIAZEPINES URINE NEGATIVE (NEGATIVE); BLOOD UREA NITROGEN 15 MG/DL (7-18); CANNABINOIDS URINE NEGATIVE (NEGATIVE); CARBON DIOXIDE LEVEL 25 MEQ/L (21-32); CHLORIDE LEVEL 104 MEQ/L (98-107); COCAINE METABOLITE URINE NEGATIVE (NEGATIVE); CREATININE FOR GFR 1.05 MG/DL (0.70-1.30); ETHYL ALCOHOL (ETHANOL) 0.286 % (0.000-0.010); GLOMERULAR FILTRATION RATE > 60.0 (>60); GLUCOSE, FASTING 96 MG/DL (70-100); METHADONE URINE NEGATIVE (NEGATIVE); OPIATES URINE NEGATIVE (NEGATIVE); PHENCYCLIDINE URINE NEGATIVE (NEGATIVE); POTASSIUM SERUM 3.7 MEQ/L (3.5-5.1); SODIUM LEVEL 141 MEQ/L (136-145)
[2019-01-01] MEDS ORDERED: LORazepam 2 MG/ML VIAL (J2060) IM STA (04:09)
[2019-01-01] MEDS ORDERED: ONDANSETRON 4 MG ORAL DISINTEGRATING TAB (Q0162 PER 1MG) PO ONE (04:15)
[2019-01-01 06:18] VITALS: BP 124/76
[2019-01-01] MEDS ORDERED: OXAZ30CA2 PO (06:31)
== END 2019-01-01 10:25 | disposition home or self-care (01) ==
LOC: M ED 03:08
DX: F10.129 Alcohol abuse with intoxication, unspecified (principal); F17.200 Nicotine dependence, unspecified, uncomplicated; F12.10 Cannabis abuse, uncomplicated; Z79.899 Other long term (current) drug therapy; Z88.0 Allergy status to penicillin
CPT/HCPCS: 80048; 80307; 96372; 99284; G0480; J2060; Q0162

== ENCOUNTER 2019-04-28 15:28 | Emergency (ER) | payer BC ==
[~2019-04-28] VITALS: Ht 172.7 cm; Wt 88.8 kg
[~2019-04-28 15:28] MED LIST changes: +OMEP1CAP73 PO; -OMEP20CA4 PO
[2019-04-28] MEDS ORDERED: CYCL10TA PO (15:42)
[2019-04-28] MEDS ORDERED: OXAZEPAM 15 MG CAP PO ONE (16:15)
[2019-04-28 16:20] LABS: HEMATOCRIT 52.7 % (42.0-52.0); HEMOGLOBIN 18.2 g/dl (13.5-17.5); MEAN CORPUSCULAR HEMOGLOBIN 30.5 pg (27.0-33.0); MEAN CORPUSCULAR HGB CONC 34.5 g/dl (32.0-36.5); MEAN CORPUSCULAR VOLUME 88.3 fl (80.0-96.0); PLATELET COUNT, AUTOMATED 400 10^3/uL (150-450); RED BLOOD COUNT 5.97 10^6/uL (4.30-6.10); WHITE BLOOD COUNT 7.5 10^3/uL (4.0-10.0)
[2019-04-28 16:51] LABS: AMPHETAMINES LEVEL URINE NEGATIVE (NEGATIVE); BARBITURATES URINE NEGATIVE (NEGATIVE); BENZODIAZEPINES URINE NEGATIVE (NEGATIVE); CANNABINOIDS URINE NEGATIVE (NEGATIVE); COCAINE METABOLITE URINE NEGATIVE (NEGATIVE); METHADONE URINE NEGATIVE (NEGATIVE); OPIATES URINE NEGATIVE (NEGATIVE); PHENCYCLIDINE URINE NEGATIVE (NEGATIVE)
[2019-04-28 16:58] LABS: ACETAMINOPHEN LEVEL 4.6 UG/ML (10.0-30.0); ALBUMIN 4.2 GM/DL (3.2-5.2); ALT/SGPT 64 U/L (12-78); BILIRUBIN,DIRECT 0.2 MG/DL (0.0-0.2); BILIRUBIN,TOTAL 0.4 MG/DL (0.2-1.0); BLOOD UREA NITROGEN 14 MG/DL (7-18); CALCIUM LEVEL 8.9 MG/DL (8.5-10.1); CARBON DIOXIDE LEVEL 26 MEQ/L (21-32); CHLORIDE LEVEL 105 MEQ/L (98-107); CPK CREATINE PHOSPHOKINASE 153 U/L (39-308); CREATININE FOR GFR 1.19 MG/DL (0.70-1.30); GLOMERULAR FILTRATION RATE > 60.0 (>60); GLUCOSE, FASTING 96 MG/DL (70-100); LIPASE 150 U/L (73-393); POTASSIUM SERUM 4.2 MEQ/L (3.5-5.1); SALICYLATE LEVEL < 1.7 MG/DL (5.0-30.0); SODIUM LEVEL 139 MEQ/L (136-145); TOTAL PROTEIN 7.6 GM/DL (6.4-8.2)
[2019-04-28] MEDS ORDERED: ONDA4TAB6 PO (18:53)
[2019-04-28] MEDS ORDERED: OXAZ30CA2 PO (18:53)
[2019-04-28 19:40] VITALS: BP 151/80
== END 2019-04-28 19:45 | disposition home or self-care (01) ==
LOC: M ED 15:28
DX: F10.220 Alcohol dependence with intoxication, uncomplicated (principal); F10.230 Alcohol dependence with withdrawal, uncomplicated; F10.280 Alcohol dependence with alcohol-induced anxiety disorder; F17.200 Nicotine dependence, unspecified, uncomplicated; Z79.899 Other long term (current) drug therapy; Z88.0 Allergy status to penicillin
CPT/HCPCS: 80048; 80076; 80307; 82550; 83690; 84443; 85027; 99283; G0480

== ENCOUNTER → 2019-05-12 | Outpatient (CLI) | payer BC ==
[~2019-05-12] MED LIST changes: +CYCL10TA PO; +DISU250T PO; +ONDA4TAB6 PO
--- NOTE | 2019-05-12 11:51 | REP ---
Clinical: Evaluate for tuberculosis. Technique: PA and lateral. Findings: Large hiatal hernia. Cardiac silhouette is normal. Lung gibson are clear and without consolidation, effusion, or pneumothorax. Skeletal structures are intact. Impression: Large hiatal hernia. No focal consolidation or effusion. Electronically Signed by Austin Aquino MD 05/12/2019 11:42 A
== END ==
LOC: M WUC 10:13
PROVIDERS: ATTEND Family Medicine Adult Medicine
DX: R76.11 Nonspecific reaction to tuberculin skin test without active tuberculosis (principal); Z11.1 Encounter for screening for respiratory tuberculosis; K44.9 Diaphragmatic hernia without obstruction or gangrene

== ENCOUNTER 2019-05-14 04:42 | Emergency (ER) | payer BC, MEDICAID, SELFPAY ==
[~2019-05-14 04:42] MED LIST changes: -DISU250T PO
[2019-05-14] MEDS ORDERED: OXAZEPAM 10 MG CAP PO ONE (06:45)
[2019-05-14] MEDS ORDERED: FOLIC ACID 1 MG TAB PO ONE (08:30)
[2019-05-14] MEDS ORDERED: ACETAMINOPHEN TAB 650MG DOSE (2X325MG) PO ONE (08:30)
[2019-05-14] MEDS ORDERED: OMEPRAZOLE 20 MG CAP PO ONE (08:30)
[2019-05-14] MEDS ORDERED: lisinopriL 20 MG TAB PO ONE (08:30)
[2019-05-14] MEDS ORDERED: busPIRone 5 MG TAB PO ONE (08:30)
[2019-05-14] MEDS ORDERED: MULTIVITAMINS/MINERALS THERAP 1 TAB PO ONE (08:30)
--- NOTE | 2019-05-14 09:39 | ED PDOC ---
Provider Note Consult Slick Harris MRN: N/A Date of : N/A Date of Service: 05/14/2019 Chief Complaint Consultation for safety in the ER. History of Present Illness The patient, a 49-year-old man presented to [facility] after being transferred from [place] after driving himself to the ER where he had been drinking a severe amount of alcohol. He had tested with a BAL of 0.188, reporting some vague passive suicidal ideation while intoxicated, reported that his alcoholism had caused his job and had made it difficult for him to obtain work. 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 The patient was brought in for evaluation. When the patient was met with he reported that he was feeling much better now that he has become sober. He reported that he had difficulties with alcoholism and primarily his drinking had been an issue. He reported that he was quite future orientated and that he was planning on going to get fingerprinted for a job at [employer]. He reported that he had some anxiety in the past that he had tried to have treated with his primary care, but no psychiatric history. He denied any significant symptoms of depression other than when he is drinking. Review Of Systems Depression: The patient denies any episodes of unprovoked depressed mood associated with neurovegetative symptoms lasting longer than 2 weeks with symptoms present nearly everyday. Anxiety: As above. Yessi: The patient denies any episodes of euphoria/dysphoria associated with decreased need for sleep, hedonism, talkatively or impulsivity lasting longer than 5 days. Psychotic: The patient denies any experiences of auditory or visual hallucinations. They deny any episodes of paranoia or delusional thinking in the past Trauma: The patient denies any traumatic events associated with nightmares or intrusive thoughts. Borderline: The patient screens negative for borderline personality at this junction. Past Psychiatric History The patient reports no history of psychiatric admissions, medication trials or current followup. Denies any suicide attempts. Family Psychiatric History The patient denies/is unaware any history of mental health history including addictions and suicide. Social History The patient grew up in the local area. He had previously worked for [employer]. Has had difficulties with alcohol where he will drink up to several pints a day of alcohol. Reports he has sobriety in periods of months, has been to multiple inpatient rehabs. Currently employed. Lives with his mother. Supported by his mother and sister. Denies any history of trauma or abuse growing up. Reports accomplishing basic education. Medical History Patient has no significant past medical history. Allergies See below Mental Status Examination General: Well dressed with good hygiene Speech: Spontaneous and fluid Thought processes: Linear and logical MSK: Smooth and coordinated gait, no signs of tremors or involuntary orofacial movements Thought content: Future orientated Abstract reasoning, and computation: Intact Description of associations: Intact Description of abnormal or psychotic thoughts: Denies any suicidal or homicidal ideation. Denies any auditory or visual hallucinations. Does not appear to be responding to internal stimuli. Does not appear to be endorsing any bizarre or paranoid ideation. Judgment: fair Insight: fair Orientation: Alert and orientated 3 Cognition: Grossly normal Recent and remote memory: Intact Attention span and concentration: Intact Fund of knowledge: Adequate Mood: "okay" Affect: Euthymic with a full range Diagnoses Alcohol use disorder, moderate to severe. Assessment and Plan The patient, a 49-year-old man with a significant history of alcoholism, presents after reportedly becoming quite intoxicated. He was brought in for evaluation after being reported to have had passive ideation. Collateral information gained from his mother report that he is actually doing fairly well and has been "getting back on his feet" as the patient says. The patient's mother relates that there is no concerns of safety at home, no parasuicidal behavior or ideation has been noted. The patient at this time is denying any suicidal or homicidal ideation and has a normal mental status exam. The patient has good insight into the situation and is open and amenable to treatment at this time. I discussed with the patient at length about prescribing disulfiram 250 mg daily for alcoholism as he has tried naltrexone in the past with poor results. The patient reports that he is amenable to having his mother as a sober support person. Discussed the risks, benefits and potential side effects with [facility] patient. Additionally discussed with ER doctor about the patient getting a short script for alcohol withdrawal symptoms as he reports having some symptoms mildly in the past, but none currently. At this time, I do not believe the patient meets involuntary criteria for admission as he has been denying any suicidal or homicidal ideation at this time while sober. He has paucity of past psych histories with no admissions, no suicide attempts and no concerning behaviors at home as noted through collateral information. He appears to be able to attend to basic needs and hygiene as well as food, making it very difficult for me to make an argument that he is at imminent risk of self-harm or harm towards others. He declines a voluntary admission and must be discharged in the [facility]. Disposition Discharged to home. Time Spent 30 minutes Friday ANJU PENG DO May 14, 2019 09:39
[2019-05-14] MEDS ORDERED: OXAZ30CA2 PO (11:38)
[2019-05-14 13:14] VITALS: BP 143/98
[2019-05-14] MEDS ORDERED: DISU250T PO (16:45)
== END 2019-05-14 13:20 | disposition home or self-care (01) ==
LOC: M ED 04:42
DX: F10.10 Alcohol abuse, uncomplicated (principal); Z56.0 Unemployment, unspecified; F32.9 Major depressive disorder, single episode, unspecified; K21.9 Gastro-esophageal reflux disease without esophagitis; I10 Essential (primary) hypertension; F17.200 Nicotine dependence, unspecified, uncomplicated; Z79.899 Other long term (current) drug therapy; Z88.0 Allergy status to penicillin

== ENCOUNTER 2019-08-02 06:56 | Emergency (ER) | payer MEDICAID ==
[~2019-08-02] VITALS: Ht 172.7 cm; Wt 41.3 kg
[~2019-08-02 06:56] MED LIST changes: +CYCL-707 PO; -CYCL10TA PO; +DISU250T PO
[2019-08-02] MEDS ORDERED: DIPH25CA32 PO (07:13)
[2019-08-02] MEDS ORDERED: NAPR220C14 PO (07:13)
[2019-08-02] MEDS ORDERED: LORazepam 2 MG TAB PO STA (07:26)
[2019-08-02] MEDS ORDERED: ONDANSETRON 4MG/2ML VIAL IV ONE (07:30)
[2019-08-02] MEDS ORDERED: lisinopriL 20 MG TAB PO ONE (07:45)
[2019-08-02 07:56] VITALS: BP 127/87
[2019-08-02 08:04] LABS: BASO # 0.1 10^3/uL (0.0-0.2); BASO % 0.9 % (0.0-1.0); EOS # 0.2 10^3/uL (0.0-0.5); EOS % 2.4 % (0.0-3.0); HEMATOCRIT 46.8 % (42.0-52.0); HEMOGLOBIN 16.3 g/dl (13.5-17.5); LYMPH # 2.5 10^3/uL (1.5-5.0); LYMPH % 28.9 % (24.0-44.0); MEAN CORPUSCULAR HGB CONC 34.8 g/dl (32.0-36.5); MEAN CORPUSCULAR VOLUME 89.1 fl (80.0-96.0); MONO # 0.8 10^3/uL (0.0-0.8); MONO % 9.5 % (0.0-5.0); NEUTROPHILS # 5.1 10^3/uL (1.5-8.5); NEUTROPHILS % 57.8 % (36.0-66.0); PLATELET COUNT, AUTOMATED 343 10^3/uL (150-450); RED BLOOD COUNT 5.25 10^6/uL (4.30-6.10); WHITE BLOOD COUNT 8.8 10^3/uL (4.0-10.0)
--- NOTE | 2019-08-02 08:09 | ECGEPIP ---
[facility] - ED Test Date: 2019-08-02 Pat Name: CASSIE SINGLETON Department: Room: - Gender: Male [employer]: DIGNA : 1970 Requested By: ALEJANDRA Porter PA-C Order Number: [id number] Reading MD: Lucero Barrett Measurements Intervals [place] Rate: 84 P: 17 IN: 159 QRS: -10 QRSD: 123 T: 80 QT: 386 QTc: 457 Interpretive Statements SINUS RHYTHM INFERIOR MYOCARDIAL INFARCTION, OF INDETERMINATE AGE SIMILAR 11/19/17 Electronically Signed on 08-02-2019 8:09:22 EDT by Lucero Barrett
[2019-08-02 08:29] LABS: AMPHETAMINES LEVEL URINE NEGATIVE (NEGATIVE); BARBITURATES URINE NEGATIVE (NEGATIVE); BENZODIAZEPINES URINE NEGATIVE (NEGATIVE); CANNABINOIDS URINE POSITIVE (NEGATIVE); COCAINE METABOLITE URINE NEGATIVE (NEGATIVE); METHADONE URINE NEGATIVE (NEGATIVE); OPIATES URINE NEGATIVE (NEGATIVE); PHENCYCLIDINE URINE NEGATIVE (NEGATIVE)
[2019-08-02 08:29] LABS: ACETAMINOPHEN LEVEL < 2.0 UG/ML (10.0-30.0); ALBUMIN 3.4 GM/DL (3.2-5.2); ALT/SGPT 54 U/L (12-78); BILIRUBIN,DIRECT 0.2 MG/DL (0.0-0.2); BILIRUBIN,TOTAL 0.6 MG/DL (0.2-1.0); BLOOD UREA NITROGEN 15 MG/DL (7-18); CALCIUM LEVEL 8.3 MG/DL (8.5-10.1); CARBON DIOXIDE LEVEL 20 MEQ/L (21-32); CHLORIDE LEVEL 108 MEQ/L (98-107); CK-MB VALUE MASS 1.8 NG/ML (<3.6); CPK CREATINE PHOSPHOKINASE 318 U/L (39-308); CREATININE FOR GFR 0.95 MG/DL (0.70-1.30); ETHYL ALCOHOL (ETHANOL) 0.152 % (0.000-0.010); GLOMERULAR FILTRATION RATE > 60.0 (>60); GLUCOSE, FASTING 99 MG/DL (70-100); LIPASE 346 U/L (73-393); MB/CK RELATIVE INDEX 0.57 (< OR =4); POTASSIUM SERUM 3.5 MEQ/L (3.5-5.1); SALICYLATE LEVEL 2.2 MG/DL (5.0-30.0); SODIUM LEVEL 144 MEQ/L (136-145); TOTAL PROTEIN 6.8 GM/DL (6.4-8.2); TROPONIN I 0.02 NG/ML (< 0.10)
--- NOTE | 2019-08-02 08:51 | REP ---
Chest x-ray: Two views. History: Abdomen pain. Comparison chest x-ray: May 12, 2019. Findings: There is a large hiatal hernia behind the heart. There is no evidence of free subdiaphragmatic air. Mild plate-like atelectasis is present at the left base. Heart is not enlarged. The pleural angles are sharp. Pulmonary vasculature is not increased. Impression: Mild plate-like atelectasis left base. Large hiatal hernia. Otherwise no acute disease. Electronically Signed by Jaron Salazar MD 08/02/2019 08:43 A
[2019-08-02] MEDS ORDERED: OXAZEPAM 15 MG CAP PO ONE ×3 (09:15→13:30)
[2019-08-02 12:30] VITALS: BP 133/81
== END 2019-08-02 14:10 | disposition home or self-care (01) ==
LOC: M ED 06:56
DX: R07.9 Chest pain, unspecified (principal); F10.129 Alcohol abuse with intoxication, unspecified; F12.10 Cannabis abuse, uncomplicated; K44.9 Diaphragmatic hernia without obstruction or gangrene; F33.9 Major depressive disorder, recurrent, unspecified; R11.0 Nausea; I10 Essential (primary) hypertension; K21.9 Gastro-esophageal reflux disease without esophagitis; F17.210 Nicotine dependence, cigarettes, uncomplicated; Z88.6 Allergy status to analgesic agent; Z79.899 Other long term (current) drug therapy
CPT/HCPCS: 36415; 71046; 80048; 80076; 80307; 81001; 82550; 82553; 83690; 85025; 93005; 93041; 96374; 99285; G0480; J2405